=== PATIENT | female | born 1975 | race Hispanic/Latino ===

== ENCOUNTER → 2025-02-18 | Day surgery (SDC) | payer BC, OTHER ==
[~2025-02-18] MED LIST: CEFTRIAXONE 1 GM VIAL ONE; DEXAMETHASONE SOD PHOS INJ 4 MG/ML SDV ONE; FENTANYL CITRATE/PF 100MCG/2 ML INJ ONE; IRON PO; LACTATED RINGER'S 1,000 ML ONE; LIDOCAINE HCL 2% LOCAL INJ 5 ML SDV VIAL INJ ONE; MAGNESIUM GLYC100 MG PO; MIDAZOLAM HCL 2 MG/2 ML VIAL ONE; MULTI-VITAMIN1 EACH PO; ONDANSETRON HCL INJ 2MG/ML 2ML 2 MG/ML VIAL ONE; PROPOFOL IV EMULSION 10 MG/ML 20 ML VIAL ONE; SEVOFLURANE INHAL SOLN 250 ML PEN BTL ONE; SUCCINYLCHOLINE CHLORIDE 20 MG/ML 10ML VIAL ONE; TRANEXAMIC ACI650 MG PO; VITAMIN C500 MG PO
[2025-02-18] MEDS: FENTANYL CITRATE/PF 100MCG/2 ML INJ ONE (07:55)
[2025-02-18 08:25] VITALS: BP 107/65; PULSE 59; RESP 16; O2SAT 100
== END | disposition home or self-care (01) ==
LOC: OR 05:27
PROVIDERS: ATTEND Urology
DX: N39.0 Urinary tract infection, site not specified (principal); N81.4 Uterovaginal prolapse, unspecified; D64.9 Anemia, unspecified
CPT/HCPCS: 52005; 74420; 81025; C1758; C1769; J0330; J0696; J1100; J2003; J2250; J2405; J2704; J3010; J7121